=== PATIENT | male | born 1965 | race Caucasian/White ===

== ENCOUNTER 2020-10-27 05:23 | Observation (INO) ==
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
--- NOTE | 2020-09-30 10:01 | XRay Report ---
XR chest Pre-admission PA/Lat CLINICAL HISTORY: Preoperative chest COMPARISON STUDY: None FINDINGS: There are postsurgical changes present with mediastinal surgical clips. The heart is normal in size. There is no failure. There is no focal pulmonary consolidation. There are no pleural effusi ons. There is a prominent left cardiophrenic angle fat pad.[ IMPRESSION: No active disease in the chest. ACT 112: Negative or not required by law. Electronically signed by: Lalo Locke M.D. 09/30/2020 10:00 AM
[2020-09-30 10:04] LABS: Basophils # (auto) 0.03 K/uL (0-0.2); Basophils % (auto) 0.4 %; Eosinophils # (auto) 0.12 K/uL (0-0.5); Eosinophils % (auto) 1.7 %; Hematocrit (blood only) 42.4 % (42-52); Hemoglobin 14.2 g/dL (14.0-18.0); Immature Granulocytes # (auto) 0.03 K/uL (0.00-0.02); Immature Granulocytes % (auto) 0.4 %; Lymphocytes # (auto) 1.78 K/uL (1.2-3.4); Lymphocytes % (auto) 25.2 %; Mean Corpuscular Hgb Conc 33.5 g/dL (32-36); Mean Corpuscular Volume 92.6 fL (80-100); Mean Platelet Volume 11.9 fL (7.4-10.4); Monocytes # (auto) 0.69 K/uL (0.11-0.59); Monocytes % (auto) 9.8 %; Neutrophils % (auto) 62.5 %; Platelet Count 288 K/uL (130-400); RDW Coefficient of Variation 13.7 % (11.5-14.5); Red Blood Count 4.58 M/uL (4.7-6.1); White Blood Count 7.05 K/uL (4.8-10.8)
[2020-09-30 10:17] LABS: Partial Thromboplastin Ratio 0.9; Partial Thromboplastin Time 25.2 Seconds (21.0-31.0); Prothrombin Time 10.7 Seconds (9.0-12.0)
--- NOTE | 2020-10-01 09:00 | Electrocardiogram Report ---
Test Reason : Blood Pressure : / mmHG Vent. Rate : 065 BPM Atrial Rate : 065 BPM P-R Int : 142 ms QRS Dur : 106 ms QT Int : 388 ms P-R-T Axes : 044 054 -26 degrees QTc Int : 403 ms Normal sinus rhythm Nonspecific ST and T wave abnormality Abnormal ECG No previous ECGs available Confirmed by Alirio Jorgensen ([id number]) on 10/01/2020 9:00:01 AM Referred By: Sean Prado Confirmed By:Alirio Jorgensen
[2020-10-27] MEDS ORDERED: LR 60ML/HR IV SCH (06:00)
[2020-10-27] MEDS ORDERED: VANCOMYCIN HCL 2,000 MG in SODIUM CHLORIDE 0.9% 500 ML IV SCH ×2 (06:00→18:30)
[2020-10-27] MEDS ORDERED: LR 500ML BOLUS, THEN 15ML/HR IV SCH (06:00)
[2020-10-27] MEDS ORDERED: METOCLOPRAMIDE HCL 10 MG TABLET PO SCH (06:00)
[2020-10-27] MEDS ORDERED: BUPIVACAINE LIPOSOME/PF 266 MG, BUPIVACAINE/EPINEPHRINE 50 ML, SODIUM CHLORIDE 0.9% 30 ... INFIL SCH (06:00)
[2020-10-27] MEDS ORDERED: TRANEXAMIC ACID 1,000 MG **IV Intra-op IV SCH (06:00)
[2020-10-27] MEDS ORDERED: ACETAMINOPHEN 500 MG TAB PO SCH (06:00)
[2020-10-27] MEDS ORDERED: FAMOTIDINE 20 MG TAB PO SCH (06:00)
[2020-10-27] MEDS ORDERED: GABAPENTIN 900 MG DOSE PO SCH (06:00)
[2020-10-27] MEDS ORDERED: BUPIVACAINE 0.5 % 5 MG/1 ML PF 10ML VIAL ONE (06:23)
[2020-10-27] MEDS ORDERED: ROPIVACAINE 0.5% 5 MG/ML 30 ML VIAL ONE (06:23)
[2020-10-27] MEDS ORDERED: EPINEPHrine INJ 1 MG/ML AMP ONE ×2 (06:23→06:40)
[2020-10-27] MEDS ORDERED: fentaNYL citrate 100 MCG/2 ML VIAL ONE (06:24)
[2020-10-27] MEDS ORDERED: MIDAZOLAM HCL 1 MG/ML 2ML VIAL ONE (06:24)
[2020-10-27] MEDS ORDERED: BACITRACIN INJ 50,000 UNIT VIAL ONE (06:40)
[2020-10-27] MEDS ORDERED: SODIUM CHLORIDE 0.9% PF 50 ML VIAL ONE (06:40)
[2020-10-27] MEDS ORDERED: BUPIVACAINE 0.25% 30 ML VIAL ONE (06:40)
[2020-10-27] MEDS ORDERED: BUPIVACAINE LIPOSOME 1.3% 266 MG/20 ML VIAL ONE (06:40)
--- NOTE | 2020-10-27 06:53 | History & Physical Bridge Note ---
Date of Service October 27, 2020 History & Physical Bridge Note I have examined the patient, reviewed the History & Physical and in the interval since the performance of the History & Physical I have noted the following changes of clinical significance: no changes noted
[2020-10-27] MEDS ORDERED: PROPOFOL IV EMULSION 10 MG/ML 20 ML VIAL IV ONE ×2 (07:11→07:21)
[2020-10-27] MEDS ORDERED: ONDANSETRON INJ 2 MG/ML 2 ML VIAL IV PRN ×2 (07:19→10:01)
[2020-10-27] MEDS ORDERED: ePHEDrine sulfate 50 MG/ML AMP IV PRN (07:19)
[2020-10-27] MEDS ORDERED: MEPERIDINE HCL 25 MG/ML CARP/VIAL IV PRN (07:19)
[2020-10-27] MEDS ORDERED: ATROPINE SULFATE 0.1 MG/ML 10ML SYR IV PRN (07:19)
[2020-10-27] MEDS ORDERED: PHENYLEPHRINE 100MCG/ML 5ML SYR IV PRN (07:19)
[2020-10-27] MEDS ORDERED: HYDROmorphone INJ 1 MG/ML SYRINGE IV PRN (07:19)
[2020-10-27] MEDS ORDERED: LABETALOL HCL IV 5 MG/ML 20ML IV PRN (07:19)
[2020-10-27] MEDS ORDERED: fentaNYL citrate 100 MCG/2 ML VIAL IV PRN (07:19)
[2020-10-27] MEDS ORDERED: GLYCOPYRROLATE 0.2 MG/ML VIAL ONE (07:23)
--- NOTE | 2020-10-27 08:49 | Post Operative Brief Note ---
PG Immediate Post Op with CF Date of Surgery October 27, 2020 Pre & Post Diagnosis Operation Date: 10/27/20 07:00 Pre-Op Diagnosis: Right Knee Degenerative Joint Disease Post-Op Diagnosis: Right Knee Degenerative Joint Disease I identified the patient and participated in the time-out.: Yes Procedure Operation Date: 10/27/20 07:00 Actual Procedures p Right Total Knee Arthroplasty(Right) - Sean Prado MD Surgeon Sean Prado MD Boiler Helper DONN Hughes Estimated Blood Loss 50 Findings Consistent with Post-Op Diagnosis Fluids 1400 cc Specimens Specimen Description: A. Right Knee Bone and Tissue Drains Tabares Catheter (16fr tabares catheter inserted by KAMI Huang. Tabares is patent and draining clear yellow urine. Anesthesia to monitor urine output intraoperatively.) Complications none Disposition Accompanied Patient To Recovery: No Disposition: Recovery Room
--- NOTE | 2020-10-27 09:03 | Operative Report ---
Post Operative Report Pre & Post Diagnosis Operation Date: 10/27/20 07:00 Pre-Op Diagnosis: Right Knee Degenerative Joint Disease Post-Op Diagnosis: Right Knee Degenerative Joint Disease I identified the patient and participated in the time-out.: Yes Procedure Operation Date: 10/27/20 07:00 Actual Procedures p Right Total Knee Arthroplasty(Right) - Sean Prado MD Surgeon Sean Praod MD Cab Supervisor DONN Hughes Estimated Blood Loss 50 Findings Consistent with Post-Op Diagnosis Operative findings revealed advanced right knee DJD. He is pretty extensive grade 4 [id number] disease of the medial compartment. He had some spotty grade 4 changes laterally and some moderate grade 4 changes of the patellofemoral joint. He had a moderate-sized joint effusion. Slight flexion contracture of 5 degrees. Fluids 1400 cc. Specimens Right knee sent for pathology. Drains None. Anesthesia Type Spinal MAC Complications none Disposition Accompanied Patient To Recovery: No Disposition: Recovery Room Indications Patient is a 55-year-old gentleman with a history of spinal cord injury many years ago. Over the past 5 to 10 years he developed increased pain discomfort in his right knee. Is had some underlying spasticity as well. Is been through extensive conservative treatment which became less successful over time. He is actually scheduled for knee replacement surgery in the past but had to cancel due to some business reasons. He is now had some time to proceed and would like to have his right knee replaced. X-rays show advanced medial compartment arthritis. Description of Procedure Operative implants consisted of: 1. Biomet Vanguard size 80 right posterior stabilized femoral component. 2. Biomet size 79 tibial tray. 3. 12 mm posterior stabilized polyethylene insert. 4. 34 x 8 and half all polypatella. The patient was taken the operating identified and placed in the operating table supine position but all contact areas were properly padded. IV antibiotics tried by anesthesia team. A spinal anesthetic and abductor canal block had been provided in the holding area. Solitario catheter was placed in sterile fashion. Right thigh turn was then placed in the right lower extremity was then prepped and draped in the usual sterile fashion. The right leg was elevated exsanguinated with use of an Esmarch and turns placed at 3 mmHg. An anterior approach to the right knee was then performed to longitudinal incision centered over the patella. Sharp dissection was carried through subcutaneous tissue down to the extensor mechanism. A medial parapatellar arthrotomy incision was made. Some subperiosteal dissection was carried out medially for the fat pad was resected from each patella tendon. The lateral patellofemoral ligament was released. Patella was subluxated laterally and the knee was flexed. The osteophytes were taken off distal femur P the ACL and PCL were then released in the distal femur and the tibia subluxate anteriorly. The external tibial alignment exam placed in the interface the tibia and adjusted 14 mm medially. Proximal tibial cut was made remove about a millimeter or 2 of bone from most efficient aspect medial tibial plateau. Some osteophytes taken off medial and posterior medially. I did release some of the hamstring tendons posteriorly due to his flexion contracture and his underlying spasticity. The tibia sized to a size 79. Attention drawn the femur. The distal femur was entered with a sharp drop with intramedullary canal was suction. A right 6 degree valgus cutting guide was placed. Distal femoral cutting block was pinned in place but distal femoral cut was made to take an additional 3 mm of bone off distal femur. The femur was then sized to a size 80. We did even downsized this slightly. The AP cutting block was pinned parallel to the epicondylar axis which was 3 degrees of external rotation. Anterior cut, anterior chamfer, posterior cut, posterior chamfer cuts were made. Box cutting guide was placed in just slight lateral box cut was made. The knee was flexed. The remnants of medial lateral menisci were excised. The osteophytes were taken off the posterior aspect of the femur. A trial femoral component was placed. The tibial tray was pinned in maximum external rotation and the drill and stem punch were used to create defect in proximal to for the tibial tray. The knee was then trialed and the 12 mm insert fit most appro priately. Attention drawn the patella. The patella was cleaned of all soft tissues. Patella thickness measured 26 mm in thickness was cut down to 14. Was sized to a size 34 patella. The lug holes were drilled for the 34 patella. The the lateral osteophyte was removed. Patella button was placed. Knee was taken through range of motion patella tracked nicely with no thumbs test. Attention drawn to place the permanent components. All trial components were removed. A bone plug was placed in the distal femur limit blood loss. L batch Palacos G cement was mixed. Biommyhomemove Vanguard size 80 right posterior stabilized femoral component, size 79 tibial tray, a 12 mm posterior stabilized polyethylene insert, and a 34 x 8 and half all polypatella were then cemented in place. Knees brought out in full extension total cement hardened. Final cement checkup then performed. The pericapsular tissues were injected with total 100 cc of combination of 20 cc of Exparel, 30 cc normal saline, 50 cc of quarter percent Marcaine with epinephrine. Patient did receive 1 g tranexamic acid. The tourniquet was then let down for final tourniquet time 61 minutes. Hemostasis assured use electrocautery. Extensor mechanism closed with combination 1 PDS suture and #1 Vicryl suture in [id number] fashion. The extensor mechanism checked found to be intact the subcutaneous tissue then closed with 2 Dexon suture in a buried interrupted fashion skin was closed skin lo. Leg was then cleaned dried a sterile dressing was Xeroform, 4 x 4's, sterile cast padding, Arjun bandage were applied. Patient then transferred to the recovery room in stable condition. The patient tolerated the procedure well and there were no complications. Jaspal Hughes, my physician assistant store leader, was present for the entire procedure. His assistance was essential and required for appropriate patient positioning, prepping and draping, surgical exposure, performing the technical details of the operation, placement the implants, closure of the wound, and placement of the sterile bandage. I attest to the content of the Intraoperative Record and any orders documented therein. Any exceptions are noted below.
--- NOTE | 2020-10-27 09:24 | Anesthesiology Progress Note ---
Date of Service October 27, 2020 Anesthesia Post Procedure Vital Signs Vital Signs: Temp Pulse Pulse Resp BP BP Pulse Ox 10/27/20 09:15 70 21 147/83 H 100 10/27/20 09:05 63 20 155/75 H 100 10/27/20 08:57 36.1 C L 79 13 125/81 98 10/27/20 06:40 36.6 C 74 20 148/83 H 98 10/27/20 06:06 36.6 C 89 20 172/84 H 99 Transfer of Care Handoff Completed per policy Notes Mental Status: alert / awake / arousable Patient Amnestic to Procedure: Yes Nausea / Vomiting: adequately controlled Pain: adequately controlled Airway Patency, RR, SpO2: stable & adequate BP & HR: stable & adequate Hydration State: stable & adequate Neuraxial Anesthesia: was administered and sensory block is resolving Anesthetic Complications: no major complications apparent and Pt Satisfied with anesthetic care
--- NOTE | 2020-10-27 09:34 | XRay Report ---
RIGHT KNEE 2 VIEWS History: Right total knee arthroplasty. Degenerative arthritis. Postop. FINDINGS: The patient is status post a right total knee arthroplasty. The hardware is intact. No frac ture or dislocation. Skin lo are in place. IMPRESSION: Right total knee arthroplasty. No evidence for hardware complication. ACT 112: Negative or not required by law. Electronically signed by: Cruzito Sarabia M.D. 10/27/2020 9:33 AM
[2020-10-27] MEDS ORDERED: NALOXONE HCL 0.4 MG/1 ML VIAL/CARP IV PRN (10:01)
[2020-10-27] MEDS ORDERED: diphenhydrAMINE Capsule 25 MG CAP PO PRN (10:01)
[2020-10-27] MEDS ORDERED: ALUMINUM/MAGNESIUM SUSP 30 ML UDC PO PRN (10:01)
[2020-10-27] MEDS ORDERED: MAGNESIUM HYDROXIDE SUSP 30 ML UDC PO PRN (10:01)
[2020-10-27] MEDS ORDERED: bisacodyL 10 MG SUPP PR PRN (10:01)
[2020-10-27] MEDS ORDERED: TAMSULOSIN HCL 0.4 MG CAP PO PRN (10:01)
[2020-10-27] MEDS ORDERED: METOCLOPRAMIDE HCL INJ 5 MG/ML 2 ML VIAL IV PRN (10:01)
[2020-10-27] MEDS ORDERED: oxyCODONE HCL IR 5 MG TAB (IMMEDIATE RELEASE) PO PRN (10:01)
[2020-10-27] MEDS ORDERED: VANCOMYCIN CONSULT ACTIVE PRN (10:01)
[2020-10-27] MEDS ORDERED: HYDROmorphone INJ 0.5 MG/0.5 ML SYR IV PRN (10:01)
[2020-10-27] MEDS: SODIUM CHLORIDE 0.9% 1000ML 1,000 ML IV SCH ×2 (10:39→23:31)
[2020-10-27] MEDS: DOCUSATE SODIUM 100 MG CAP PO SCH ×2 (11:05→22:08)
[2020-10-27] MEDS: TAPENTADOL HCL ER 50 MG TABCR PO SCH ×2 (11:05→22:08)
[2020-10-27] MEDS: ASCORBIC ACID 500 MG TAB PO SCH (11:05)
[2020-10-27] MEDS: MULTIVITAMIN TAB PO SCH (11:06)
[2020-10-27] MEDS: ASPIRIN 81 MG ECTAB PO SCH ×2 (12:49→22:09)
[2020-10-27] MEDS: KETOROLAC 30 MG/ML VIAL IV SCH ×3 (12:49→23:33)
[2020-10-27] MEDS: ACETAMINOPHEN 500 MG TAB PO SCH ×2 (12:50→22:09)
[2020-10-27] MEDS ORDERED: TRANEXAMIC ACID / 0.7% NACL 1,000 MG/100 ML BAG IV SCH (15:00)
[2020-10-27] MEDS: ceFAZolin 2000MG 2,000 MG/15 ML SYR IV SCH ×2 (15:49→22:19)
[2020-10-27] MEDS: Scopolamine CHECK PATCH PLACEMENT SCH (15:49)
[2020-10-27] MEDS: FERROUS GLUCONATE 324 MG TAB PO SCH (18:28)
[2020-10-27] MEDS ORDERED: SENNA 8.6 MG TAB PO SCH (21:00)
[2020-10-28] MEDS: Scopolamine CHECK PATCH PLACEMENT SCH ×2 (00:38→08:25)
[2020-10-28 06:16] LABS: Hematocrit (blood only) 34.9 % (42-52); Hemoglobin 11.6 g/dL (14.0-18.0); Mean Corpuscular Hemoglobin 30.9 pg (25-34); Mean Corpuscular Hgb Conc 33.2 g/dL (32-36); Mean Corpuscular Volume 93.1 fL (80-100); Platelet Count 262 K/uL (130-400); RDW Coefficient of Variation 13.6 % (11.5-14.5); Red Blood Count 3.75 M/uL (4.7-6.1); White Blood Count 10.39 K/uL (4.8-10.8)
[2020-10-28] MEDS: ACETAMINOPHEN 500 MG TAB PO SCH (06:18)
[2020-10-28] MEDS: KETOROLAC 30 MG/ML VIAL IV SCH ×2 (06:19→12:18)
[2020-10-28] MEDS: SODIUM CHLORIDE 0.9% 1000ML 1,000 ML IV SCH (06:19)
[2020-10-28 06:59] LABS: BUN Creatinine Ratio 22.2 (10-20); Calcium 8.3 mg/dl (8.5-10.1); Creatinine Clr Calc Pharmacy 141.1 ml/min; Est GFR (African American) 112.1; Est GFR (Non-African American) 96.7; Potassium 4.3 mmol/L (3.5-5.1)
[2020-10-28] MEDS ORDERED: dexAMETHasone 4 MG TAB PO SCH (08:00)
--- NOTE | 2020-10-28 08:18 | Progress Notes ---
DATE: 10/28/2020 SUBJECTIVE: A 55-year-old gentleman postop day 2 from a right knee replacement. He is doing pretty well. Not really having much pain at all while resting in bed. Moderately painful with walking. No chest pain or shortness of breath. Not feeling dizzy or lightheaded. OBJECTIVE: VITAL SIGNS: Temperature 36.8. Vital signs stable. GENERAL: Shows a pleasant, middle-aged male. He is lying in bed, looks pretty comfortable this morning. LUNGS: Clear to auscultation. HEART: Has a regular rate and rhythm. ABDOMEN: Soft, nontender, nondistended. EXTREMITIES: Grossly neurovascularly intact except as follows. Examination of the right leg reveals the leg to be well aligned. Dressing is clean, dry, and intact. He can dorsiflex and plantarflex his foot appropriately. He is neurologically intact. LABORATORY DATA: Hemoglobin 11.6. Hematocrit 34.9. Electrolytes are stable. ASSESSMENT: A 55-year-old gentleman postop day 1 from right knee replacement, doing pretty well. Pain is controlled. He is neurologically intact. PLAN: 1. DVT prophylaxis including thigh-high TEDs, SCDs, and aspirin twice a day. 2. PT/OT. Weight bear as tolerated. Right total knee protocol. 3. Pain control, doing well with current pain regimen. 4. Disposition: Plan to discharge to home with some home health if he does okay in therapy today and his pain is controlled.
[2020-10-28] MEDS: TAPENTADOL HCL ER 50 MG TABCR PO SCH (09:54)
[2020-10-28] MEDS: ASPIRIN 81 MG ECTAB PO SCH (09:54)
[2020-10-28] MEDS: MULTIVITAMIN TAB PO SCH (09:54)
[2020-10-28] MEDS: DOCUSATE SODIUM 100 MG CAP PO SCH (09:55)
[2020-10-28] MEDS: ASCORBIC ACID 500 MG TAB PO SCH (09:55)
[2020-10-28] MEDS: FERROUS GLUCONATE 324 MG TAB PO SCH (09:55)
== END 2020-10-28 13:19 | disposition home health service (06) ==
LOC: 3N 05:23 → ASU 05:23

== ENCOUNTER 2022-05-20 08:11 | Observation (INO) ==
--- NOTE | 2022-04-25 16:03 | PAT Medication Instructions ---
Medication Instructions Date of Service April 25, 2022 Home Medications Medication Instructions Recorded Jewel Reid #1 ea 11/09/20 ascorbic acid (vitamin C) 500 mg tablet (Vitamin C) 500 mg PO QAM DO NOT take the morning of surgery ascorbic acid (vitamin C) 500 mg tablet (Vitamin C) 500 mg PO QAM OTHERWISE NOTHING TO EAT OR DRINK AFTER MIDNIGHT Other Notes If you have any questions please call us at [phone] or [phone] or [phone] or [phone]
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
[~2022-05-20 08:11] MED LIST: ACETAMINOPHEN 500 MG TAB PO SCH; BUPIVACAINE 0.5 % 5 MG/1 ML PF 10ML VIAL ONE; BUPIVACAINE LIPOSOME/PF 266 MG, BUPIVACAINE/EPINEPHRINE 50 ML, SODIUM CHLORIDE 0.9% 30 ... INFIL SCH; FAMOTIDINE 20 MG TAB PO SCH; GABAPENTIN 600 MG DOSE PO SCH; LR 500ML BOLUS, THEN 15ML/HR IV SCH; LR 60ML/HR IV SCH; METOCLOPRAMIDE HCL 10 MG TABLET PO SCH; ROPIVACAINE 0.5% 5 MG/ML 30 ML VIAL ONE; Scopolamine 1 MG TDSY TD SCH; TRANEXAMIC ACID 1,000 MG **IV Intra-op IV SCH
--- NOTE | 2022-05-20 09:04 | History & Physical Bridge Note ---
Date of Service May 20, 2022 History & Physical Bridge Note I have examined the patient, reviewed the History & Physical and in the interval since the performance of the History & Physical I have noted the following changes of clinical significance: no changes noted
[2022-05-20] MEDS ORDERED: PROPOFOL IV EMULSION 10 MG/ML 20 ML VIAL IV ONE ×4 (10:32→14:17)
[2022-05-20] MEDS ORDERED: HYDROmorphone INJ 2 MG/ML SYR/VIAL IV PRN (11:18)
[2022-05-20] MEDS ORDERED: ePHEDrine sulfate 50 MG/ML AMP IV PRN (11:18)
[2022-05-20] MEDS ORDERED: fentaNYL citrate 100 MCG/2 ML VIAL IV PRN (11:18)
[2022-05-20] MEDS ORDERED: ATROPINE SULFATE 0.1 MG/ML 10ML SYR IV PRN (11:18)
[2022-05-20] MEDS ORDERED: BUPIVACAINE LIPOSOME 1.3% 266 MG/20 ML VIAL ONE (11:22)
[2022-05-20] MEDS ORDERED: EPINEPHrine INJ 1 MG/ML AMP ONE (11:22)
[2022-05-20] MEDS ORDERED: BUPIVACAINE 0.5 % 5 MG/1 ML MPF 30ML VIAL ONE (11:22)
[2022-05-20] MEDS ORDERED: VANCOMYCIN HCL 1000MG/20ML VIAL ONE (11:22)
[2022-05-20] MEDS ORDERED: SODIUM CHLORIDE 0.9% PF 50 ML VIAL ONE (11:23)
[2022-05-20] MEDS ORDERED: MIDAZOLAM HCL 1 MG/ML 2ML VIAL ONE (11:24)
[2022-05-20] MEDS ORDERED: BUPIVACAINE 0.25% 30 ML VIAL ONE (11:26)
[2022-05-20] MEDS ORDERED: ONDANSETRON INJ 2 MG/ML 2 ML VIAL ONE (13:23)
[2022-05-20] MEDS ORDERED: ARTIFICIAL TEARS OP OINT 3.5 GM TUBE ONE (13:25)
--- NOTE | 2022-05-20 15:50 | Post Operative Brief Note ---
PG Immediate Post Op with CF Date of Surgery May 20, 2022 Pre & Post Diagnosis Operation Date: 05/20/22 10:40 Pre-Op Diagnosis: Painful-failed right total Knee Replacement Post-Op Diagnosis: Painfu/failed right Total Knee Replacement I identified the patient and participated in the time-out.: Yes Procedure Operation Date: 05/20/22 10:40 Actual Procedures p Right Total Knee Revision with Hinged Knee Placement(Right) - Sean Prado MD Surgeon Sean Prado MD Waxer Jaspal Hughes PA-C Estimated Blood Loss 200 Findings Consistent with Post-Op Diagnosis Specimens Specimen Description: Frozen sections: FS1) Right knee synovium, number of polys per high powered field Cultures: 1) Right Knee Synovial Fluid Drains Solitario Catheter Anesthesia Type Spinal MAC Complications none Disposition Accompanied Patient To Recovery: No
--- NOTE | 2022-05-20 16:14 | XRay Report ---
XR knee RT 1 or 2V routine CLINICAL HISTORY: Postoperative evaluation. COMPARISON: Right knee radiographs October 27, 2020. FINDINGS: Alignment of the revision longstem right knee arthroplasty is anatomic. There are skin sta ples. There is no periprosthetic fracture. No unexpected radiopaque foreign bodies are present. IMPRESSION: Expected findings following revision right knee arthroplasty. ACT 112: Negative or not required by law. Electronically signed by: Reji eFlix M.D. 05/20/2022 4:12 PM
--- NOTE | 2022-05-20 16:36 | Anesthesiology Progress Note ---
Date of Service May 20, 2022 Anesthesia Post Procedure Vital Signs Vital Signs: Temp Pulse Resp BP Pulse Ox 05/20/22 16:25 36.6 C 62 19 113/80 98 05/20/22 16:15 54 L 16 114/85 100 05/20/22 16:05 76 16 126/67 100 05/20/22 15:55 53 L 20 124/70 100 05/20/22 15:47 36.2 C L 62 16 126/69 98 05/20/22 08:32 37 C 73 20 159/77 H 98 Pain Intensity Right Knee: Pain Intensity: 0 Transfer of Care Handoff Completed per policy Notes Mental Status: alert / awake / arousable Patient Amnestic to Procedure: Yes Nausea / Vomiting: adequately controlled Pain: adequately controlled Airway Patency, RR, SpO2: stable & adequate BP & HR: stable & adequate Hydration State: stable & adequate Neuraxial Anesthesia: was administered and sensory block is resolving Anesthetic Complications: no major complications apparent
[2022-05-20] MEDS ORDERED: NALOXONE HCL 0.4 MG/1 ML VIAL/CARP IV PRN (17:03)
[2022-05-20] MEDS ORDERED: HYDROmorphone INJ 0.5 MG/0.5 ML SYR IV PRN (17:03)
[2022-05-20] MEDS ORDERED: MAGNESIUM HYDROXIDE SUSP 30 ML UDC PO PRN (17:03)
[2022-05-20] MEDS ORDERED: diphenhydrAMINE Capsule 25 MG CAP PO PRN (17:03)
[2022-05-20] MEDS ORDERED: bisacodyL 10 MG SUPP PR PRN (17:03)
[2022-05-20] MEDS ORDERED: dexAMETHasone 10 MG in SYRINGE 0 ML IV SCH (17:03)
[2022-05-20] MEDS ORDERED: TAMSULOSIN HCL 0.4 MG CAP PO PRN (17:03)
[2022-05-20] MEDS ORDERED: oxyCODONE HCL IR 5 MG TAB (IMMEDIATE RELEASE) PO PRN (17:03)
[2022-05-20] MEDS ORDERED: ONDANSETRON INJ 2 MG/ML 2 ML VIAL IV PRN (17:03)
[2022-05-20] MEDS ORDERED: METOCLOPRAMIDE HCL INJ 5 MG/ML 2 ML VIAL IV PRN (17:03)
[2022-05-20] MEDS ORDERED: ALUMINUM/MAGNESIUM SUSP 30 ML UDC PO PRN (17:03)
[2022-05-20] MEDS: SODIUM CHLORIDE 0.9% 1000ML 1,000 ML IV SCH (17:10)
[2022-05-20] MEDS ORDERED: ONDANSETRON 4 MG OD TAB PO PRN (17:17)
[2022-05-20] MEDS: Scopolamine CHECK PATCH PLACEMENT SCH (17:23)
--- NOTE | 2022-05-20 18:12 | Operative Report ---
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 There is no signs of infection. A a gross varus valgus laxity to stress testing. Specimens Synovium sent for frozen section Fluid sent for stat gram stain aerobic and anaerobic culture Anesthesia Type Spinal MAC Complications none Disposition Accompanied Patient To Recovery: No Indications Patient is a 56-year-old gentleman whose had a history of a spinal cord stroke many years ago. 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 He developed a severe arthritis in his right knee he had his right knee replaced a year and a half ago. He did great for the first 6 months. He then developed progressive instability that got worse over the following year. X-rays show progressive laxity to the lateral side of his knee. Patient is indicated for surgical intervention. I did not think a ligament repair would likely help due to his history of a nerve neurological dysfunction and the etiology of this problem. I thought his only option was a hinged knee replacement. Description of Procedure Operative implants consisted of: 1. Biomet OSS 3 cm right resurfacing femoral component with a 15 x 150 mm straight cemented stem. 2. Biomet OSS size 79 tibial tray with a 13 x 90 mm stem. 3. 14 mm tibial bearing. The patient was taken the operating, identified, placed on the operating table supine position protectors were properly padded. IV antibiotics tried by anesthesia team. A spinal anesthetic and been put in the holding area. Solitario catheter was placed in sterile fashion. Right thigh turn was then placed in the right lower extremities and prepped and draped in usual sterile fashion. The right leg was elevated exsanguinated with use of an Esmarch in terms playset 300 mmHg. An anterior approach of the right knee knee was then performed using the previous incision. Sharp dissection Through subcutaneous tissues down the extensor mechanism. A medial parapatellar arthrotomy incision was made. Some subperiosteal dissection was carried out medially. A complete synovectomy of the suprapatellar pouch and the medial and lateral gutters was performed. We sent the frozen section of synovium off for pathology. This revealed 3 or less polys per high-power field. We elected proceed with revision. We did send some fluid off for stat gram stain and aerobic and anaerobic culture. The patella was subluxated laterally and the knee was flexed. The polyethylene was removed. I spent quite a bit of time the optimizing exposure around the implants. I then used a ACL saw to disrupt the interface of the femoral component and then with an osteotome technique was able to move the femoral component with very little bone damage. A similar process was performed on the tibia using a of the ACL saw followed by Jessee santiago and the stacked osteotome technique. I then drilled holes in the within the cement of the tibia and remove the cement in the proximal tibia. We then proceeded with repairing the bones for implantation. Irrigated the wound extensively. Attention first drawn to the tibia. We reamed the tibia and placed the IM guide. I cut the proximal tibia to remove about 2 mm of bone from the most deficient aspect of the tibia. This created a nice bony surface. We sized this to a size 79. This was then prepared for the 90 mm stem extension. That implant was assembled and placed. Attention drawn the femur. Graft the distal femur was entered with the drill and we reamed up. We placed the IM guide and then the placed distal femoral cutting guide. The distal femoral cut was made to remove 20 mm of bone from the distal femur. The AP cutting block was pinned parallel to the epicondylar axis and the anterior posterior cuts were performed. His femur was very large and we did end up notching of the femur anteriorly but I did not think there was another option considering this was our only alignment option as there is no offset option. We then trialed the knee and it was still too tight so we took the femoral component and cut about another 5 mm of bone off distal femur. We placed the trial implant and it fit nicely and with a 14 mm insert that was appropriately balanced. I elected to place these implants. Nupathe all trial implants were removed. I did inject locally with 100 cc of a combination of 20 cc of Exparel, 30 cc normal saline, 50 cc of quarter percent Marcaine with epinephrine. The tourniquet was then let down for a time of 15 minutes until ready for cementation. The implants were assembled at the back table. I irrigated the wound extensively. Hemostasis assured use electrocautery. The leg was then wrapped up again and the tourniquet was placed at 300 mmHg. Double batch of Palacos G cement was then mixed with an additional gram of vancomycin I injected the tibial canal. The tibial implant was placed. A second batch of 2 packs of cement and 1 bottle of vancomycin were then mixed and injected in the femoral canal and the femoral component was placed. We had excellent fit. Once the cement hardened we trialed the knee 1 more time. The 14 mm insert fit most appropriately in extension. We then placed the permanent insert. The tourniquet was then let down for a second turn time 20 minutes. Hemostasis assured use electrocautery. Wounds once again irrigated. Extensor mechanism closed with #1 PDS suture and 1 Vicryl suture in a [id number] fashion. Extensor mechanism checked found to be intact the subcutaneous tissue then closed with 2 Dexon suture buried knot fashion skin was closed skin lo. Leg was then cleaned and dried a sterile dressing was Xeroform, 4 x 4's, sterile cast padding, Arjun bandage were applied. The patient then transferred to the ecovery room in stable condition. The patient tolerated procedure well and there were no complications. Jaspal Hughes, my physician hr assistant, was present for the entire procedure. His assistance was essential and required for appropriate patient positioning, prepping and draping, surgical exposure, performing the technical details of the operation, placement the implants, closure of the wound, and placement of the sterile bandage. I attest to the content of the Intraoperative Record and any orders documented therein. Any exceptions are noted below.
[2022-05-20] MEDS: KETOROLAC 30 MG/ML VIAL IV SCH (18:35)
[2022-05-20] MEDS ORDERED: SENNA 8.6 MG TAB PO SCH (21:00)
[2022-05-20] MEDS: TAPENTADOL HCL ER 50 MG TABCR PO SCH (21:02)
[2022-05-20] MEDS: DOCUSATE SODIUM 100 MG CAP PO SCH (21:03)
[2022-05-20] MEDS: ACETAMINOPHEN 500 MG TAB PO SCH (21:04)
[2022-05-20] MEDS ORDERED: TRANEXAMIC ACID / 0.7% NACL 1,000 MG/100 ML BAG IV SCH (22:00)
[2022-05-20] MEDS: ceFAZolin 2000MG 2,000 MG/15 ML SYR IV SCH (22:31)
[2022-05-21] MEDS: KETOROLAC 30 MG/ML VIAL IV SCH ×3 (00:02→11:47)
[2022-05-21] MEDS: SODIUM CHLORIDE 0.9% 1000ML 1,000 ML IV SCH (00:24)
[2022-05-21] MEDS: Scopolamine CHECK PATCH PLACEMENT SCH ×2 (00:37→08:00)
[2022-05-21] MEDS: ceFAZolin 2000MG 2,000 MG/15 ML SYR IV SCH (05:47)
[2022-05-21] MEDS: ACETAMINOPHEN 500 MG TAB PO SCH (05:49)
[2022-05-21] MEDS: DOCUSATE SODIUM 100 MG CAP PO SCH (08:00)
[2022-05-21] MEDS: TAPENTADOL HCL ER 50 MG TABCR PO SCH (08:00)
[2022-05-21 08:12] LABS: Hematocrit (blood only) 38.3 % (42-52); Hemoglobin 12.7 g/dL (14.0-18.0); Mean Corpuscular Hemoglobin 29.7 pg (25-34); Mean Corpuscular Hgb Conc 33.2 g/dL (32-36); Mean Corpuscular Volume 89.7 fL (80-100); Mean Platelet Volume 11.2 fL (7.4-10.4); Platelet Count 263 K/uL (130-400); RDW Standard Deviation 45.9 fL (36.4-46.3); Red Blood Count 4.27 M/uL (4.7-6.1); White Blood Count 12.23 K/uL (4.8-10.8)
[2022-05-21 08:21] LABS: BUN Creatinine Ratio 23.7 (10-20); Calcium 8.4 mg/dl (8.5-10.1); Creatinine Clr Calc Pharmacy 126.8 ml/min; Est GFR (African American) 100.7 ml/min; Est GFR (Non-African American) 86.9 ml/min; Potassium 4.1 mmol/L (3.5-5.1)
[2022-05-21] MEDS ORDERED: DOCUSATE SODIUM/SENNA 50/8.6MG TAB PO SCH (09:00)
[2022-05-21] MEDS ORDERED: ASCORBIC ACID 500 MG TAB PO SCH (09:00)
[2022-05-21] MEDS ORDERED: MULTIVITAMIN TAB PO SCH (09:00)
--- NOTE | 2022-05-21 10:56 | Progress Notes ---
DATE OF SERVICE: 05/21/2022. SUBJECTIVE: A 56-year-old gentleman, postoperative day 1 from a revision knee arthroplasty for insta bility. He is doing pretty well this morning. Pain medicine works. No chest pain or shortness of b reath. Not feeling dizzy or lightheaded. OBJECTIVE: VITAL SIGNS: Temperature 36.5. Vital signs are stable. PHYSICAL EXAMINATION: GENERAL: Shows a pleasant middle-aged male. He is sitting up in bed and eating breakfast. Looks pr charlette comfortable. EXTREMITIES: Examination of the right leg reveals the dressing to be in place. It has been reinforc ed, has a little bit of bloody drainage anteriorly. He can dorsiflex and plantarflex his foot approp riately. He is neurologically intact. LABORATORY DATA: Hemoglobin 12.7, hematocrit 38.3. Electrolytes are stable. Gram stain of the fluid with no WBCs, no organisms seen. Culture is still pending. ASSESSMENT: A 56-year-old gentleman postoperative day 1 from a revision knee arthroplasty for instab ility, doing reasonably well. Pain seems to be controlled. He is neurologically intact. PLAN: 1. DVT prophylaxis includes thigh-high TEDs, SCDs, and Xarelto for 30 days at a prophylactic dose. 2. PT, OT, weightbear as tolerated. Right total knee protocol. 3. Pain control, doing okay with current pain regimen. 4. Disposition: Plan to discharge to home with some home health. We will see how therapy goes ranjeet manriquez Job ID: [id number]
[2022-05-21] MEDS ORDERED: RIVAROXABAN 10 MG TABLET PO SCH (16:00)
== END 2022-05-21 13:49 | disposition home health service (06) ==
LOC: 3E 08:11 → ASU 08:11